=== PATIENT | male | born 1995 | race African-American/Black ===

== ENCOUNTER 2019-10-03 16:37 | Emergency (ER) | payer SELFPAY ==
[~2019-10-03] VITALS: Ht 185.4 cm; Wt 120.0 kg
[2019-10-03 17:10] VITALS: BP 131/80
--- NOTE | 2019-10-03 18:27 | PHYS DOC ---
Past Medical History Past Medical History: Other Additional Past Medical Histor: ADHD Past Surgical History: Appendectomy Smoking Status: Never Smoker Alcohol Use: None Drug Use: None General Adult EDM: Chief Complaint: ABDOMINAL PAIN HPI: HPI: Patient is a 23 year old male who complains of irritable bowel problems every time he goes to work. Patient states that he started a new job at [employer] 3 weeks ago, and the day started his new job his irritable bowel symptoms flared up causing him to required the need to use the restroom several times. He states that this concerned his employers thinking that he may have the COVID-19 virus. Patient denies exposure to the COVID-19 virus and also does not want to be tested for the COVID-19 virus. Patient states that he wants a work excuse and a physician to follow-up with so he can start some sort of medications to control his irritable bowel symptoms so he does not lose his job. Patient denies any fever or chills, denies any problems seeing, denies any nasal congestion or sore throat. Patient denies cough shortness of breath chest pain edema abdominal pain nausea vomiting diarrhea or constipation at this time. Patient denies any problems urinating, denies back pain or pain in his joints. Patient denies skin rashes, headaches, focal weaknesses or sensory changes. Patient denies any swelling of his glands. He denies depressions, anxieties, homicidal or suicidal ideations. Patient states his main concern is getting a work excuse so that he does not lose his job. Review of Systems: Review of Systems: Constitutional: Denies fever or chills. Denies exposure to the COVID-19 viru s. Eyes: Denies change in visual acuity. HENT: Denies nasal congestion or sore throat. Respiratory: Denies cough or shortness of breath. Cardiovascular: Denies chest pain or edema. GI: Denies abdominal pain, nausea, vomiting, bloody stools or diarrhea. : Denies dysuria. Musculoskeletal: Denies back pain or joint pain. Integument: Denies rash. Neurologic: Denies headache, focal weakness or sensory changes. Lymphatic: Denies swollen glands. Psychiatric: Denies depression or anxiety. Heart Score: Risk Factors: Risk Factors: DM, Current or recent (<one month) smoker, HTN, HLP, family h istory of CAD, obesity. Risk Scores: Score 0 - 3: 2.5% MACE over next 6 weeks - Discharge Home Score 4 - 6: 20.3% MACE over next 6 weeks - Admit for Clinical Observation Score 7 - 10: 72.7% MACE over next 6 weeks - Early Invasive Strategies Allergies: Allergies: Allergies Coded Allergies Type Severity Reaction Last Updated Verified No Known Drug Allergies 11/02/13 No Physical Exam: PE: Constitutional: Well developed, well nourished, no acute distress, non-toxic appearance. HENT: Normocephalic, atraumatic, bilateral external ears normal, oropharynx moist, no oral exudates, nose normal. Eyes: PERRLA, EOMI, conjunctiva normal, no discharge. Pupils 4 mm. Neck: Normal range of motion, no tenderness, supple, no stridor. Cardiovascular:Heart rate regular rhythm, no murmur, heart sounds S1-S2, no abnormalities were auscultation. Lungs & Thorax: Bilateral breath sounds clear to auscultation all lung raygoza. Abdomen: Bowel sounds normal all 4 quadrants, soft, no tenderness, no masses, no pulsatile masses. Skin: Warm, dry, no erythema, no rash. Back: No tenderness, no CVA tenderness. Extremities: No tenderness, no cyanosis, no clubbing, ROM intact, no edema. Neurologic: Alert and oriented X 3, normal motor function, normal sensory function, no focal deficits noted. Psychologic: Affect normal, judgement normal, mood normal. Current Patient Data: Vital Signs: Vital Signs Date Time Temp Pulse Resp B/P (MAP) Pulse Ox O2 Delivery O2 Flow Rate FiO2 10/03/19 17:10 97.7 84 20 131/80 (97) 98 Room Air 97.7 EKG: EKG: [] Radiology/Procedures: Radiology/Procedures: [] Course & Med Decision Making: Course & Med Decision Making Pertinent Labs and Imaging studies reviewed. (See chart for details) 23-year-old male presented emergency department with complaints of irritable bowel syndrome flareup when he works. Patient states that he would like to have a work excuse, and a physician to follow-up with so he can start on medications to control his irritable bowel since he has recently received health insurance through his new job at [employer]. Patient's exam was negative and non-concerning for acute illness or an acute infectious process. Patient will be given a work excuse today. Patient will be given a follow-up physician and or clinic to use in the future for his irritable bowel problems. Patient gave verbal understanding of discharge instructions, had no further questions or concerns. Patient discharged home. Dragon Disclaimer: Dragon Disclaimer: This electronic medical record was generated, in whole or in part, using a voice recognition dictation system. Departure Departure Impression: Primary Impression: Irritable bowel syndrome Qualified Codes: K58.9 - Irritable bowel syndrome without diarrhea Additional Impression: Encounter to obtain excuse from work Disposition: HOME, SELF-CARE Condition: GOOD Referrals: NON,STAFF (PCP) Patient Instructions: Irritable Bowel Syndrome Additional Instructions: You have been given a pamphlet with recommended physicians to follow-up with. Please follow-up with 1 of them soon regarding your irritable bowel syndrome. Return to emergency department for worsening symptoms or further concerns. Justicifation of Admission Dx: Justifications for Admission: Justification of Admission Dx: N/A ARNOLDO RAHMAN APRN Oct 03, 2019 18:27
== END 2019-10-03 18:50 | disposition home or self-care (01) ==
LOC: ER 16:37
DX: K58.9 Irritable bowel syndrome, unspecified (principal); F90.9 Attention-deficit hyperactivity disorder, unspecified type; Z90.89 Acquired absence of other organs
CPT/HCPCS: 99281

== ENCOUNTER 2019-10-09 02:09 | Emergency (ER) | payer SELFPAY ==
[~2019-10-09] VITALS: Ht 182.9 cm; Wt 122.0 kg
--- NOTE | 2019-10-09 03:21 | PHYS DOC ---
Past Medical History Past Medical History: Other Additional Past Medical Histor: ADHD Past Surgical History: Appendectomy Smoking Status: Current Every Day Smoker Alcohol Use: Occasionally Drug Use: None General Adult EDM: Chief Complaint: LOWER EXT PAIN HPI: HPI: Patient is a 24 year old male who presents with chronic right knee pain. Patient states that he has had knee pain for the last 5 years. He reports that during high school he had an injury. He never sought medical attention for it. Today he states that he is working in because he is working is on his feet a lot. Today he is reporting there is pain in that right knee. He reports he is able to walk without much difficulty except for the pain. He denied any fever, chills or sweats, denied any new trauma to it. Patient is concerned that the pain is present. However he is taken no medication for pain. The pain is worse with exercise or walking, described as achy and constant Review of Systems: Review of Systems: Constitutional: Denies fever or chills. [] Eyes: Denies change in visual acuity. [] HENT: Denies nasal congestion or sore throat. [] Respiratory: Denies cough or shortness of breath. [] Cardiovascular: Denies chest pain or edema. [] GI: Denies abdominal pain, nausea, vomiting, bloody stools or diarrhea. [] : Denies dysuria. [] Musculoskeletal: See HPI [] Integument: Denies rash. [] [] Heart Score: Risk Factors: Risk Factors: DM, Current or recent (<one month) smoker, HTN, HLP, family history of CAD, obesity. Risk Scores: Score 0 - 3: 2.5% MACE over next 6 weeks - Discharge Home Score 4 - 6: 20.3% MACE over next 6 weeks - Admit for Clinical Observation Score 7 - 10: 72.7% MACE over next 6 weeks - Early Invasive Strategies Allergies: Allergies: Allergies Coded Allergies Type Severity Reaction Last Updated Verified No Known Drug Allergies 11/02/13 No Physical Exam: PE: Constitutional: Well developed, well nourished, no acute distress, non-toxic appearance. [] Cardiovascular:Heart rate regular rhythm, no murmur [] Lungs & Thorax: Bilateral breath sounds clear to auscultation [] Abdomen: Bowel sounds normal, soft, no tenderness, no masses, no pulsatile masses. [] . [] Back: No tenderness, no CVA tenderness. [] Extremities: No tenderness, no cyanosis, no clubbing, ROM intact, no edema. There was a little laxity on the lateral collateral ligament on the right when compared to the left but the knee itself appeared to be stable with no ACL or PCL injury, no effusion, no calor no deformity [] Neurologic: Alert and oriented X 3, normal motor function, normal sensory function, no focal deficits noted. [] Psychologic: Affect normal, judgement normal, mood normal. [] Current Patient Data: Vital Signs: Vital Signs Date Time Temp Pulse Resp B/P (MAP) Pulse Ox O2 Delivery O2 Flow Rate FiO2 10/09/19 02:15 98.2 86 18 116/75 (89) 96 Room Air 98.2 EKG: EKG: [] Radiology/Procedures: Radiology/Procedures: [] Course & Med Decision Making: Course & Med Decision Making Pertinent Labs and Imaging studies reviewed. (See chart for details) 0320-patient was seen and examined. No evidence of an exigent medical or surgical problems identified today. I discussed reasons to return, treatment plan and need for follow-up. [] Dragon Disclaimer: Dragon Disclaimer: This electronic medical record was generated, in whole or in part, using a voice recognition dictation system. Departure Departure Impression: Primary Impression: Right knee pain Qualified Codes: M25.561 - Pain in right knee; G89.29 - Other chronic pain Disposition: HOME, SELF-CARE Condition: GOOD Referrals: NO PCP (PCP) PAULY ALFRED MD Patient Instructions: Knee Pain Additional Instructions: See list of primary care providers for follow-up. Use ice after work, consider an Chalo bandage and elevation at night as well. Aleve 2 pills twice a day with food. Justicifation of Admission Dx: Justifications for Admission: Justification of Admission Dx: N/A ARI ESQUIVEL MD Oct 09, 2019 03:21
[2019-10-09] MEDS ORDERED: KETOROLAC 60 MG/2 ML VIAL. IM ONE (04:00)
[2019-10-09 04:04] VITALS: BP 135/88
== END 2019-10-09 04:08 | disposition home or self-care (01) ==
LOC: ER 02:09
DX: M25.561 Pain in right knee (principal); G89.29 Other chronic pain; F90.9 Attention-deficit hyperactivity disorder, unspecified type; F17.200 Nicotine dependence, unspecified, uncomplicated; Z90.89 Acquired absence of other organs
CPT/HCPCS: 96372; 99283; J1885

== ENCOUNTER 2020-08-18 05:31 | Emergency (ER) | payer SELFPAY ==
[~2020-08-18] VITALS: Ht 182.9 cm; Wt 117.9 kg
--- NOTE | 2020-08-18 07:43 | PHYS DOC ---
Past Medical History Past Medical History: Other Additional Past Medical Histor: ADHD Past Surgical History: No Surgical History, Appendectomy Smoking Status: Current Every Day Smoker Alcohol Use: Heavy Additional Information: EVERY WEEKEND Drug Use: None General Adult EDM: Chief Complaint: SHORTNESS OF BREATH HPI: HPI: 24-year-old male presents emergency department today with shortness of breath. This started about a week ago. Its worse at work. He has had a cough as well. He denies any fever. He was tested for COVID-19 but has not gotten his results back yet. He was given albuterol which he used and helped. He denies unilateral leg swelling hemoptysis history of DVT or PE. He denies chest pain or pressure. He denies headache, or nuchal rigidity. Review of systems negative for abdominal pain vomiting diaphoresis fevers or chills. All other review of systems negative. Heart Score: C/O Chest Pain: No Risk Factors: Risk Factors: DM, Current or recent (<one month) smoker, HTN, HLP, family history of CAD, obesity. Risk Scores: Score 0 - 3: 2.5% MACE over next 6 weeks - Discharge Home Score 4 - 6: 20.3% MACE over next 6 weeks - Admit for Clinical Observation Score 7 - 10: 72.7% MACE over next 6 weeks - Early Invasive Strategies Allergies: Allergies: Allergies Coded Allergies Type Severity Reaction Last Updated Verified No Known Drug Allergies 11/02/13 No Physical Exam: PE: Constitutional: Well developed, well nourished, no acute distress, non-toxic appearance. [] HENT: Normocephalic, atraumatic, bilateral external ears normal, oropharynx moist, no oral exudates, nose normal. [] Eyes: PERRLA, EOMI, conjunctiva normal, no discharge. [] Neck: Normal range of motion, no tenderness, supple, no stridor. [] Cardiovascular:Heart rate regular rhythm, no murmur [] Lungs & Thorax: Wheezing bilaterally with prolonged expiratory phase. Abdomen: Bowel sounds normal, soft, no tenderness, no masses, no pulsatile masses. [] Skin: Warm, dry, no erythema, no rash. [] Back: No tenderness, no CVA tenderness. [] Extremities: No tenderness, no cyanosis, no clubbing, ROM intact, no edema. [] Neurologic: Alert and oriented X 3, normal motor function, normal sensory function, no focal deficits noted. [] Psychologic: Affect normal, judgement normal, mood normal. [] Current Patient Data: Vital Signs: Vital Signs Date Time Temp Pulse Resp B/P (MAP) Pulse Ox O2 Delivery O2 Flow Rate FiO2 08/18/20 07:08 98.1 108 24 169/103 (125) 95 Room Air 98.1 EKG: EKG: [] Radiology/Procedures: Radiology/Procedures: [] Course & Med Decision Making: Course & Med Decision Making Pertinent Labs and Imaging studies reviewed. (See chart for details) [] 24-year-old male with pending Covid test presents with cough and dyspnea. Oxygen levels are in the mid 90s here and he is breathing comfortably. He did have wheezing here in the emergency department so he was given a nebulizer. CBC shows normal white blood cell count. Hemoglobin 13.9. Chemistry panel shows normal chemistry panel with a normal troponin negative proBNP. Chest x-ray shows subtle opacity in the right lung base. CT angiogram shows no PE. Scatter ed multi groundglass opacities in the lower lobes bilaterally suggestive of an atypical or and/or viral pneumonia. We will have the patient quarantine at home until his Covid test comes back. In the interim we will give the patient antibiotics steroids and an inhaler for home. We will give him a work note for now. Follow-up with PCP in 1 to 2 days. Return for worsening dyspnea. Romeo Disclaimer: Romeo Disclaimer: This electronic medical record was generated, in whole or in part, using a voice recognition dictation system. Departure Departure Impression: Primary Impression: PNA (pneumonia) Additional Impressions: Reactive airway disease Acute dyspnea Disposition: 02 SHORT TERM HOSPITAL Condition: STABLE Referrals: NO PCP (PCP) Patient Instructions: Pneumonia, Adult, Shortness of Breath, [id number] Additional Instructions: EMERGENCY DEPARTMENT GENERAL DISCHARGE INSTRUCTIONS Follow-up with your primary physician in 1 to 2 days. Return to the emergency department if you have any new or concerning findings. Thank you for coming to [facility] Emergency Department (ED) today and trusting us with you care. We trust that you had a positive experience in our Emergency Department. If you wish to speak to the department management, you may call the Director at [phone]. Follow up is important in emergency/acute care visits. This condition should be evaluated by your primary care physician and any necessary consulting services for continued management within a few days (1-2) after discharge. Return to the emergency department if you have any new or concerning symptoms including but not limited to fever, chills, nausea, vomiting, intractable pain, any new rashes, chest pain, shortness of breath, uncontrolled bleeding, difficulty breathing, and/or vision loss. 1. Do you have a private Doctor? If you do not have a private doctor, please ask for a resource list of physicians or clinics that may be able to assist you with follow up care. 2. If a lab test or culture has been done and does not come back immediately, your results will be reviewed and you will be notified if you need a change in treatment. 3. Your care today has been supervised by a physician who is specially trained in emergency care. Many problems require more than one evaluation for a complete diagnosis and treatment. We recommend that you schedule your follow up appointment as recommended to ensure complete treatment of you illness or injury. If you are unable to obtain follow up care and continue to have a problem, or if your condition worsens, we recommend that you return to the ED. 4. We are not able to safely determine your condition over the phone nor are we able to give sound medical advice over the phone. For these safety reasons, if you call for medical advice we will ask you to come to the ED for further evaluation. IF YOUR SYMPTOMS WORSEN OR NEW SYMPTOMS DEVELOP, OR YOU HAVE CONCERNS ABOUT YOUR CONDITION; OR IF YOUR CONDITION WORSENS WHILE YOU ARE WAITING FOR YOUR FOLLOW UP APPOINTMENT; EITHER CONTACT YOUR PRIMARY CARE DOCTOR, THE PHYSICIAN WHOSE NAME AND NUMBER YOU WERE GIVEN, OR RETURN TO THE ED IMMEDIATELY. Scripts Prednisone (PREDNISONE) 50 Mg Tablet 1 TAB PO DAILY, #5 TAB Prov: CORBY MONTENEGRO MD 08/18/20 Albuterol Sulfate (PROAIR HFA INHALER) 8.5 Gm Hfa.aer.ad 1 PUFF INH PRN Q6HRS PRN for SHORTNESS OF BREATH, #1 INHALER 0 Refills Prov: CORBY MONTENEGRO MD 08/18/20 Azithromycin (AZITHROMYCIN TABLET) 250 Mg Tablet 1 PKG PO UD, #6 TAB Prov: CORBY MONTENEGRO MD 08/18/20 CORBY MONTENEGRO MD Aug 18, 2020 07:43
[2020-08-18] MEDS ORDERED: IPRATRPIUM/ALBUTEROL 0.5/2.5MG 3 ML NEBU. NEB ONE (07:45)
[2020-08-18] MEDS ORDERED: methylPREDNISolone SOD SUCC PF 125 MG/2 ML VIAL. IV ONE (07:45)
[2020-08-18 08:38] LABS: BASO % 1 % (0-3); EOS # 0.3 x10^3/uL (0.0-0.7); EOS % 3 % (0-3); HEMATOCRIT 43.3 % (39.0-53.0); HEMOGLOBIN 13.9 g/dL (13.0-17.5); LYMPH # 1.4 x10^3/uL (1.0-4.8); LYMPH % 15 % (24-48); MEAN CORPUSCULAR HEMOGLOBIN 23 pg (25-35); MEAN CORPUSCULAR HGB CONC 32 g/dL (31-37); MEAN CORPUSCULAR VOLUME 72 fL (79-100); MONO # 0.8 x10^3/uL (0.0-1.1); MONO % 8 % (0-9); NEUT # 7.3 x10^3/uL (1.8-7.7); NEUT % 73 % (31-73); PLATELET COUNT 361 x10^3/uL (140-400); RED BLOOD COUNT 5.99 x10^6/uL (4.30-5.70); RED CELL DISTRIBUTION WIDTH 17.4 % (11.5-14.5); WHITE BLOOD COUNT 9.9 x10^3/uL (4.0-11.0)
--- NOTE | 2020-08-18 08:41 | RAD ---
EXAMINATION: Chest radiograph. VIEWS: Single view COMPARISON: None INDICATION:24 years, Male, shortness of breath. FINDINGS: Normal cardiomediastinal silhouette. Subtle patchy opacity in the right lung base. No pleural effusio n or pneumothorax. No acute osseous process. IMPRESSION: Subtle patchy opacity in the right lung base may reflect atelectasis or infiltrate. Electronically signed by: Delfina Dickey MD (08/18/2020 8:38 AM) [facility]
[2020-08-18 08:44] LABS: CALCIUM 9.4 mg/dL (8.5-10.1); CREATININE 0.9 mg/dL (0.7-1.3); GFR 126.5; POTASSIUM 3.8 mmol/L (3.5-5.1)
[2020-08-18 08:50] LABS: ALBUMIN 4.8 g/dL (3.4-5.0); DIRECT BILIRUBIN 0.1 mg/dL (0.0-0.2); TOTAL BILIRUBIN 0.6 mg/dL (0.2-1.0); TOTAL PROTEIN 8.9 g/dL (6.4-8.2)
[2020-08-18] MEDS ORDERED: AZIT250T6 PO (08:56)
[2020-08-18] MEDS ORDERED: ALBU2.5V8 INH (08:56)
[2020-08-18] MEDS ORDERED: PRED50TA PO (08:56)
[2020-08-18] MEDS ORDERED: CONTRAST GIVEN. MC PRN (09:00)
[2020-08-18] MEDS ORDERED: IOHEXOL 350 MG/ML 100 ML VIAL. IV ONE (09:00)
--- NOTE | 2020-08-18 09:20 | RAD ---
Examination: CT angiography chest with IV contrast HISTORY: History of shortness of breath, pulmonary embolism TECHNIQUE: Axial CT angiographic images of chest were performed with IV contrast. Coronal and sagitta l 3-D MIP reformats are performed Exposure: One or more of the following individualized dose reduction techniques were utilized for thi s examination: 1. Automated exposure control 2. Adjustment of the mA and/or kV according to patient size 3. Use of iterative reconstruction technique FINDINGS: The visualized thyroid gland grossly appears unremarkable. Central airways are patent. The caliber of the aorta grossly appears unremarkable. 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 There is no evidence of filling identified in the main pulmonary arterial david nk and right and left main pulmonary arteries. The evaluation of the distal branches of the pulmonary arteries is not evaluated. Multiple patchy groundglass airspace opacities identified in the right an d left lower lobes of the lung likely infiltrates or atypical or viral pneumonia. The visualized live r, spleen, adrenals grossly appears unremarkable No evidence of lytic bony destructive lesion. IMPRESSION: 1. No evidence of pulmonary embolism. 2. Scattered multiple groundglass airspace opacities identified in the bilateral lower lobes of the l tessie likely atypical or viral /covid pneumonia. Correlate with lab values. Electronically signed by: Vineet Freed MD (08/18/2020 9:18 AM) [id number]
[2020-08-18 09:50] VITALS: BP 141/75
--- NOTE | 2020-08-18 10:10 | EKG ---
[facility] [address] [place] [address] Test Date: 2020-08-18 Test Time: 07:53:36 Pat Name: ANTON VÁZQUEZ Department: Room: Gender: M Environmental Services Technician: : 1995 Requested By: CORBY MONTENEGRO Order Number: [id number] Reading MD: Measurements Intervals [place]ks Rate: 96 P: 121 WA: 142 QRS: 100 QRSD: 88 T: 129 QT: 356 QTc: 456 Interpretive Statements SUPRAVENTRICULAR RHYTHM RIGHTWARD AXIS QRS(T) CONTOUR ABNORMALITY CONSISTENT WITH HIGH LATERAL MYOCARDIAL DAMAGE ABNORMAL ECG RI6.01 No previous ECG available for comparison
== END 2020-08-18 10:25 | disposition home or self-care (01) ==
LOC: ER 05:31
DX: J18.9 Pneumonia, unspecified organism (principal); J45.909 Unspecified asthma, uncomplicated; F17.200 Nicotine dependence, unspecified, uncomplicated
CPT/HCPCS: 36415; 71045; 71275; 80048; 80076; 83690; 83880; 84484; 85025; 93005; 94640; 96374; 99285; J2930; Q9967